=== PATIENT | female | born 1945 | race Caucasian/White ===

== ENCOUNTER → 2017-11-12 | Outpatient (CLI) | payer OTHER, MEDICAID ==
[~2017-11-12] MED LIST: ALBUTEROL INHAL17 GM IH; AMARYL4 MG PO; AUGMENTIN 875-1 EACH PO; AZITHROMYCIN 2250 MG PO; CINNAMON500 MG PO; CONSTULOSE10 GM/15 M PO; COQ-10100 MG PO; CORGARD20 M1; DESYREL50 MG; DOC-Q-LACE; FUROSEMIDE 40 M40 M1 PO; GABAPENTIN100 MG; HUMALOG100 UNIT/1 SQ; HUMALOG100 UNIT/1 SUBQ; IRBESARTAN150 MG; JANUVIA100 MG PO; LANTUS; LANTUS SUBQ; MIRALAX255 GM; OXYCODONE HCL5 M1; OYSTER SHELL C500 MG PO; PEPCID20 MG PO; PREDNISONE 20 M20 MG PO; PROBIOTIC1 EAC1 PO; SPIRONOLACTONE25 M1 PO; SYNTHROID125 MCG PO; SYNTHROID150 MCG PO; TESSALON PERLE100 MG PO; TRAMADOL 50 MG50 MG PO; VENLAFAXINE HC150 M1 PO; VITAMIN D1000 UNI1 PO; VITAMIN D3 COM1 EACH PO; VITAMIN E400 UNIT PO; XIFAXAN550 M1 PO; ZANTAC 150MG T150 MG PO; [UNRECOGNIZED DRUG - REMARK]
--- NOTE | 2017-11-30 09:39 | H ---
[place] [address] HISTORY AND PHYSICAL Name: DEMOND BARKER [facility] [id number] Admission: 11/12/17 Attend Phys: Kali Rogel, Discharge: Date of : 47 Report #: [id number] THIS REPORT FOR: //name// CC: Kvng Rogel DATE OF SERVICE: 11/27/2017 ADMITTING DIAGNOSIS: Right groin hidradenitis. HISTORY OF PRESENT ILLNESS: The patient is a 72-year-old female who presented to [facility] with an eruption on her right inguinal crease area, was seen by Dr. Kali Lopez and was referred for surgical management. PAST MEDICAL HISTORY: Type 2 diabetes, cirrhosis, arthritis, hyperlipidemia, gastroesophageal reflux disease, hypothyroidism, chronic back pain and cervical cancer. PAST SURGICAL HISTORY: She has had an appendectomy, hysterectomy and a colon resection. MEDICATIONS: Include Januvia, glimepiride, famotidine, Lantus insulin, NovoLog insulin, lactulose, Lasix, spironolactone, Effexor, levothyroxine, and multiple vitamins. ALLERGIES: SHE HAS ALLERGIES TO LOVASTATIN. REVIEW OF SYSTEMS: Other than the eruptions was otherwise unremarkable. PHYSICAL EXAMINATION: GENERAL: She is alert, awake, conversant. HEAD, EARS, EYES, NOSE AND THROAT: Unremarkable. No swellings. NECK: Supple, with no lymphadenopathy. Thyroid was not palpable, were normal size. LUNGS: Clear. CARDIAC: Regular rate without murmur. ABDOMEN: Soft. No hepatosplenomegaly. EXTREMITIES: On the right groin, there is a chronic inflamed area of tissue that measures approximately 2.5 cm in length, 8.5 cm in width and 0.1 cm in depth. The rest of the groin was unremarkable. She has no swelling or pitting edema. IMPRESSION: This is acute and chronic hidradenitis of the groin. I have outlined surgical excision with open packing with plans for following up wound care in [facility]. I have outlined the surgical [place] [address] HISTORY AND PHYSICAL Name: DEMOND BARKER [facility]: [facility]#: [id number] Admission: 11/12/17 Attend Phys: Kali Rogel, Discharge: Date of : 47 Report #: [id number] risks and benefits, answered her questions. She understands and wishes to proceed. <ELECTRONICALLY SIGNED> By: Janice Oconnor MD 11/30/17 0939 1110 1136Janice Oconnor MD /nt
== END ==
LOC: M.WC 09:00
DX: L02.214 Cutaneous abscess of groin (principal); E11.65 Type 2 diabetes mellitus with hyperglycemia; K21.9 Gastro-esophageal reflux disease without esophagitis; F33.1 Major depressive disorder, recurrent, moderate; E03.8 Other specified hypothyroidism; Z68.33 Body mass index [BMI] 33.0-33.9, adult; M19.90 Unspecified osteoarthritis, unspecified site; Z85.038 Personal history of other malignant neoplasm of large intestine; E78.5 Hyperlipidemia, unspecified; Z90.710 Acquired absence of both cervix and uterus; Z87.891 Personal history of nicotine dependence

== ENCOUNTER → 2017-11-23 | Outpatient (CLI) | payer OTHER, MEDICAID | LOC: M.WC 02:09 | DX: L02.214 Cutaneous abscess of groin (principal); K21.9 Gastro-esophageal reflux disease without esophagitis; F33.1 Major depressive disorder, recurrent, moderate; E11.9 Type 2 diabetes mellitus without complications; E03.8 Other specified hypothyroidism; L73.2 Hidradenitis suppurativa; Z68.33 Body mass index [BMI] 33.0-33.9, adult; M19.90 Unspecified osteoarthritis, unspecified site; E78.5 Hyperlipidemia, unspecified; Z85.038 Personal history of other malignant neoplasm of large intestine; Z87.891 Personal history of nicotine dependence; Z90.710 Acquired absence of both cervix and uterus ==

== ENCOUNTER 2017-11-30 11:07 | Observation (INO) | payer OTHER, MEDICAID ==
[~2017-11-30] VITALS: Ht 165.1 cm; Wt 99.8 kg
[~2017-11-30 11:07] MED LIST changes: -AUGMENTIN 875-1 EACH PO; -HUMALOG100 UNIT/1 SUBQ; -TESSALON PERLE100 MG PO; -TRAMADOL 50 MG50 MG PO
[2017-11-30 11:37] LABS: HEMATOCRIT 36.4 % (37.0-47.0); HEMOGLOBIN 12.4 gm/dL (12.0-15.0); MCV 88.2 fL (80.0-100.0); RBC 4.13 mil/uL (4.20-5.00); RDW-CV 16.8 % (10.5-14.5); WBC 6.2 thou/uL (4.0-11.0)
[2017-11-30 12:03] LABS: CALCIUM 9.4 mg/dL (8.5-10.1); CREATININE 1.2 mg/dL (0.6-1.3); POTASSIUM 4.2 mmol/L (3.5-5.1)
[2017-11-30 12:07] LABS: ALBUMIN 3.2 g/dL (3.4-5.0); TOTAL BILIRUBIN 1.6 mg/dL (<0.1-1.0); TOTAL PROTEIN 6.3 g/dL (6.4-8.2)
[2017-11-30 16:00] VITALS: BP 132/68
--- NOTE | 2017-11-30 17:59 | EKG ---
[place] [address] ELECTROCARDIOGRAM REPORT Name: DEMOND BARKER Room: [address]#: [id number] Admission: 11/30/17 Attend Phys: Elvin Dan MD Discharge: Date of : 47 Report #: [id number] THIS REPORT FOR: //name// [facility] Test Date: 2017-11-30 Test Time: 11:37:50 Pat Name: DEMOND BARKER Department: Room: Gender: F Security Associate: [facility] : 1945 Requested By: Janice Oconnor Order Number: [id number] Ekta MD: Kike Mas Measurements Intervals [place] Rate: 100 P: 62 [place]: 158 QRS: 23 QRSD: 90 T: 34 QT: 358 QTc: 462 Interpretive Statements Sinus tachycardia Compared to ECG 10/02/2010 19:33:16 Sinus rhythm no longer present Electronically Signed On 11-30-2017 17:59:10 CDT by Kike Mas [email or web address] <ELECTRONICALLY SIGNED> By: Kike Mas MD, [facility] 11/30/17 1759 D: [id number] Kike Mas MD, FACC /EPI
[2017-11-30 18:00] VITALS: BP 109/45
--- NOTE | 2017-11-30 19:07 | NUR ---
PATIENT ARRIVED TO UNIT AT 1530. ALERT AND ORIENTED X4. UP WITH STAND BY ASSIST IN ROOM. IV IS PATENT AND SALINE LOCKED. DENIES NEED FOR PAIN MEDICATION. DENIES NAUSEA. DRESSING HELD IN PLACE WITH MESH PANTIES. TOLERATING DIET. VSS ON ROOM AIR. HOURLY ROUNDS HAVE BEEN MAINTAINED THROUGHOUT SHIFT. CALL LIGHT IS WITHIN REACH. NURSING WILL CONTINUE TO MONITOR.
[2017-11-30 21:00] VITALS: BP 137/60
[2017-12-01] VITALS: BP 109/50
[2017-12-01 04:00] VITALS: BP 110/47
--- NOTE | 2017-12-01 07:28 | NUR ---
PATIENT SLEPT WELL THROUGHOUT THE NIGHT WITHOUT ANY ISSUES. VSS ON RA. PAIN WELL CONTROLLED. MEDICATIONS GIVEN ORDERED AND CHARTED. DRESSING TO GROIN AREA CHANGED. PATIENT UP TO BSC WITH WALKER. IV IN LEFT FOREARM-SL. PATIENT INSTRUCTED TO USE CALL LIGHT WHEN NEEDING ASSISTANCE. HOURLY ROUNDS MADE. WILL CONTINUE WITH PLAN OF CARE AND NURSING TO MONITOR.
[2017-12-01 08:00] VITALS: BP 129/42
[2017-12-01 11:24] VITALS: BP 129/42
--- NOTE | 2017-12-01 12:21 | NUR ---
PT.BEING DISCHARGED TODAY WITH HOME HEALTH. SPOKE WITH HER. SHE SAID HER NEIGHBOR REMINDED HER THAT THE AGENCY THAT WAS SET UP FOR HER WAS [facility]. PT.SAID SHE RECEIVED [facility] THROUGH HER MEDICAID DURING THE WEEK FROM [facility]. SHE HAS A ROLLATOR WALKER IN THE ROOM WITH HER. SHE HAS FRIENDS AT HER APT.THAT CAN ASSIST HER. DEANGELO SPOKE WITH [facility] AND FAXED HER ORDERS AND OP REPORT OT [phone]. DEANGELO MADE APPT WITH AT [facility] FOR THURSDAY 12/07 AT 11:00. PUT ON DISCHARGE INSTRUCTIONS. ARRANGED [facility] TRIP #[id number] WITH [employer] [phone]. 3 HR.HYDRAULIC JACK ADJUSTER WINDOWN TIME IS NOW TO 1520. JUSTO CRUZ INFORMED.
[2017-12-01 14:21] VITALS: BP 129/42
[2017-12-01] MEDS ORDERED: TRAMADOL 50 MG50 MG PO (14:25)
--- NOTE | 2017-12-01 15:09 | S ---
[place] [address] SURGICAL PATH RPT PROCEDURE Name: ANYA OREILLY Room: [address] Leigha#: [id number] Admission: 11/30/17 Date of : 47 Discharge: Report #: [id number] Path Case #: [id number] PATHOLOGY REPORT COLLECTION DATE: 11/30/2017 RECEIVED DATE: 11/30/2017 SUBMITTING PHYS: Dr. Janice Oconnor OTHER PHYS: Dr. Kvng Hoang SPECIMEN(S) RECEIVED: A.Hidradenitis * * * * * * * * * * * * FINAL DIAGNOSIS: Right groin hidradenitis: - Benign skin with features typical of hidradenitis suppurativa, including epithelial/squamous cystic changes, foreign body type granulomatous response, fibrosis and abscess formation. (PAULINO:pit; 12/01/2017) PATHOLOGIST: Dex Little M.D. REPORT ELECTRONICALLY SIGNED BY: Dex Little M.D. DATE/TIME: 12/01/2017 15:08 * * * * * * * * * * * * GROSS PATHOLOGY: The specimen is received in formalin, labeled "Anya Oreilly and right groin hidradenitis", are multiple irregular fragments of hou-purple skin with underlying attached yellow soft tissue (4.0 x 2.6 x 1.0 cm in aggregate) and an irregular fragment of yellow lobulated partially hemorrhagic soft tissue (5.2 x 1.7 x 1.0 cm). Sectioning of the largest fragment reveals a yellow partially-hemorrhagic cut surface. Tuckpointer Cleaner Caulker sections are submitted in A1-A2 (A1 skin and A2 largest fragment) (SWS; 11/30/2017) CLINICAL HISTORY: Right groin hidrandenitis INITIAL CPT CODE(S): A; 62327 Professional services performed by [facility] [place] [address] SURGICAL PATH RPT PROCEDURE Name: MJANYAYumiko BARRIENTOS Room: [address] M.R.#: [id number] Admission: 11/30/17 Date of : 47 Discharge: Report #: [id number] Path Case #: [id number] Technical services performed by [facility] at [address] [place] [address], [facility] [address] [address]. [facility] [place] [address] PHONE: [phone] DIRECTOR: Martin Becker M.D. * * * END OF REPORT * * *
--- NOTE | 2017-12-01 18:27 | NUR ---
PATIENT LEFT UNIT AT 1600. ALERT AND ORIENTED X4. UP STAND BY ASSIST IN ROOM. IV DC'D. PAIN BEING MANAGED WITH PO PAIN MEDICATION. DENIES NAUSEA. DRESSING TO RIGHT GROIN C/D/I AT DC. ALL PERSONAL ITEMS LEFT WITH PATIENT. DISCHARGE INSTRUCTIONS, PRESCRIPTIONS, AND NEW MEDICATION INFORMATION SENT WITH PATIENT. VSS ON ROOM AIR. HOURLY ROUNDS HAVE BEEN MAINTAINED THROUGHOUT SHIFT. LEFT VIA TRANSPORTATION SERVICES.
[2017-12-01 18:33] VITALS: BP 129/42
--- NOTE | 2017-12-14 08:04 | OP ---
[address] [address] OPERATIVE REPORT Name: DEMOND BARKER Room: [address] Vero Ahuja#: [id number] Admission: 11/30/17 Attend Phys: Elvin Dan MD Discharge: 12/01/17 Date of : 47 Report #: [id number] THIS REPORT FOR: //name// CC: Kvng Oconnor DATE OF SERVICE: 11/30/2017 PREOPERATIVE DIAGNOSIS: Chronic right groin hidradenitis. POSTOPERATIVE DIAGNOSIS: Chronic right groin hidradenitis. OPERATIVE PROCEDURE: Wide local excision of infected hidradenitis. Dimensions 3 cm in length, 9 cm in width and 0.4 cm in depth. ANESTHESIA: IV sedation with 0.5% Marcaine and 1% lidocaine infiltrated around the wound site. DESCRIPTION OF PROCEDURE: After the patient was placed under the influence of IV sedation, the right groin was carefully prepped and draped in a sterile fashion. Timeout taken. I began by transecting the right groin area and got into the glandular portion of it and using a pickups #10 scalpel blade and cautery, I excised out the tissue in piecemeal and left an opening of 3 cm in length, 9 cm in width and 4 cm in depth. The wound bed was then injected with 20 mL of Marcaine, epinephrine mixture and then cautery was used to control bleeding points. Once that was established, a rolled piece of Aquacel was placed into the base of the wound bed, then covered with 4 x 4, gauze, ABD pads and mesh panties at the end of the operative procedure. ESTIMATED BLOOD LOSS: 5 mL. Sponge and instrument counts correct. The patient was returned to recovery in stable condition. <ELECTRONICALLY SIGNED> By: Janice Oconnor MD 12/14/17 0804 1319 1417Janice Oconnor MD /nt
== END 2017-12-01 16:00 | disposition home health service (06) ==
LOC: M.SUR 11:07 → M.ORTHSURG 15:07
PROVIDERS: Surgery; ADMIT Internal Medicine
DX: L73.2 Hidradenitis suppurativa (principal); E11.8 Type 2 diabetes mellitus with unspecified complications; Z79.4 Long term (current) use of insulin; G89.29 Other chronic pain; E66.9 Obesity, unspecified; K72.90 Hepatic failure, unspecified without coma; F32.9 Major depressive disorder, single episode, unspecified; F43.10 Post-traumatic stress disorder, unspecified; E03.9 Hypothyroidism, unspecified; K21.9 Gastro-esophageal reflux disease without esophagitis; E78.5 Hyperlipidemia, unspecified; M19.90 Unspecified osteoarthritis, unspecified site; K74.60 Unspecified cirrhosis of liver; Z85.41 Personal history of malignant neoplasm of cervix uteri; Z85.038 Personal history of other malignant neoplasm of large intestine; Z87.891 Personal history of nicotine dependence; Z90.710 Acquired absence of both cervix and uterus; Z98.890 Other specified postprocedural states

== ENCOUNTER → 2017-12-07 | Outpatient (CLI) | payer OTHER, MEDICAID ==
[~2017-12-07] MED LIST changes: +AUGMENTIN 875-1 EACH PO; +HUMALOG100 UNIT/1 SUBQ; +TESSALON PERLE100 MG PO; +TRAMADOL 50 MG50 MG PO
== END ==
LOC: M.WC 01:49
DX: T81.89XD Other complications of procedures, not elsewhere classified, subsequent encounter (principal); L02.214 Cutaneous abscess of groin; K21.9 Gastro-esophageal reflux disease without esophagitis; F33.1 Major depressive disorder, recurrent, moderate; E03.9 Hypothyroidism, unspecified; L73.2 Hidradenitis suppurativa; Z68.33 Body mass index [BMI] 33.0-33.9, adult; M19.90 Unspecified osteoarthritis, unspecified site; Z85.038 Personal history of other malignant neoplasm of large intestine; E78.5 Hyperlipidemia, unspecified; Z85.41 Personal history of malignant neoplasm of cervix uteri; Z87.891 Personal history of nicotine dependence; Z90.710 Acquired absence of both cervix and uterus; Y83.8 Other surgical procedures as the cause of abnormal reaction of the patient, or of later complication, without mention of misadventure at the time of the procedure

== ENCOUNTER → 2017-12-14 | Outpatient (CLI) | payer OTHER, MEDICAID | LOC: M.WC 00:06 | DX: T81.89XD Other complications of procedures, not elsewhere classified, subsequent encounter (principal); L02.214 Cutaneous abscess of groin; K21.9 Gastro-esophageal reflux disease without esophagitis; F33.1 Major depressive disorder, recurrent, moderate; E03.9 Hypothyroidism, unspecified; L73.2 Hidradenitis suppurativa; E11.9 Type 2 diabetes mellitus without complications; M19.90 Unspecified osteoarthritis, unspecified site; E78.5 Hyperlipidemia, unspecified; F32.9 Major depressive disorder, single episode, unspecified; Z68.33 Body mass index [BMI] 33.0-33.9, adult; Z85.038 Personal history of other malignant neoplasm of large intestine; Z85.41 Personal history of malignant neoplasm of cervix uteri; Z87.891 Personal history of nicotine dependence; Z90.710 Acquired absence of both cervix and uterus; Y83.8 Other surgical procedures as the cause of abnormal reaction of the patient, or of later complication, without mention of misadventure at the time of the procedure ==

== ENCOUNTER → 2017-12-21 | Outpatient (CLI) | payer OTHER, MEDICAID | LOC: M.WC 00:04 | DX: T81.89XD Other complications of procedures, not elsewhere classified, subsequent encounter (principal); L02.214 Cutaneous abscess of groin; K21.9 Gastro-esophageal reflux disease without esophagitis; E11.65 Type 2 diabetes mellitus with hyperglycemia; E03.8 Other specified hypothyroidism; E78.5 Hyperlipidemia, unspecified; L73.2 Hidradenitis suppurativa; M19.90 Unspecified osteoarthritis, unspecified site; G89.29 Other chronic pain; F33.1 Major depressive disorder, recurrent, moderate; Z85.038 Personal history of other malignant neoplasm of large intestine; Z87.891 Personal history of nicotine dependence; Z90.710 Acquired absence of both cervix and uterus; Y83.8 Other surgical procedures as the cause of abnormal reaction of the patient, or of later complication, without mention of misadventure at the time of the procedure ==

== ENCOUNTER → 2018-01-04 | Outpatient (CLI) | payer OTHER, MEDICAID | LOC: M.WC 12-28 01:30 | DX: T81.89XD Other complications of procedures, not elsewhere classified, subsequent encounter (principal); L02.214 Cutaneous abscess of groin; K21.9 Gastro-esophageal reflux disease without esophagitis; F33.1 Major depressive disorder, recurrent, moderate; E03.8 Other specified hypothyroidism; L73.2 Hidradenitis suppurativa; M19.90 Unspecified osteoarthritis, unspecified site; E78.5 Hyperlipidemia, unspecified; Z68.33 Body mass index [BMI] 33.0-33.9, adult; Z85.038 Personal history of other malignant neoplasm of large intestine; Z85.41 Personal history of malignant neoplasm of cervix uteri; Z87.891 Personal history of nicotine dependence; Y83.8 Other surgical procedures as the cause of abnormal reaction of the patient, or of later complication, without mention of misadventure at the time of the procedure ==

== ENCOUNTER → 2018-01-25 | Outpatient (CLI) | payer OTHER, MEDICAID | LOC: M.WC 06:30 | DX: T81.89XD Other complications of procedures, not elsewhere classified, subsequent encounter (principal); L02.214 Cutaneous abscess of groin; E03.8 Other specified hypothyroidism; L73.2 Hidradenitis suppurativa; M19.90 Unspecified osteoarthritis, unspecified site; E78.5 Hyperlipidemia, unspecified; E03.9 Hypothyroidism, unspecified; K21.9 Gastro-esophageal reflux disease without esophagitis; G89.29 Other chronic pain; F33.1 Major depressive disorder, recurrent, moderate; Z68.33 Body mass index [BMI] 33.0-33.9, adult; Z85.41 Personal history of malignant neoplasm of cervix uteri; Z87.891 Personal history of nicotine dependence; Z90.710 Acquired absence of both cervix and uterus; Y83.8 Other surgical procedures as the cause of abnormal reaction of the patient, or of later complication, without mention of misadventure at the time of the procedure ==

== ENCOUNTER 2018-02-18 16:08 | Inpatient (IN) | payer OTHER, MEDICAID ==
[~2018-02-18] VITALS: Ht 170.2 cm; Wt 103.9 kg
[~2018-02-18 16:08] MED LIST changes: -AUGMENTIN 875-1 EACH PO; -HUMALOG100 UNIT/1 SUBQ; -TESSALON PERLE100 MG PO
[2018-02-18 16:09] VITALS: BP 122/52
[2018-02-18] MEDS ORDERED: HUMALOG100 UNIT/1 SUBQ (16:17)
[2018-02-18 16:39] LABS: HEMOGLOBIN 12.2 gm/dL (12.0-15.0); MCH 30.6 pg (26.0-34.0); MCHC 34.8 g/dL (28.0-37.0); NUCLEATED RBCS 0 /100WBC; PLATELET COUNT* 108 thou/uL (150-400); RBC 3.98 mil/uL (4.20-5.00); RDW-CV 17.5 % (10.5-14.5); WBC 4.4 thou/uL (4.0-11.0)
[2018-02-18 16:44] LABS: ANION GAP 5 mmol/L (7-16); BUN 20 mg/dL (7-18); CALCIUM 8.6 mg/dL (8.5-10.1); CHLORIDE 101 mmol/L (98-107); CO2 29 mmol/L (21-32); CREATININE 1.1 mg/dL (0.6-1.3); GLUCOSE 246 mg/dL (70-99); SODIUM 135 mmol/L (136-145)
[2018-02-18 16:51] LABS: ALBUMIN 2.9 g/dL (3.4-5.0); ALKALINE PHOSPHATASE 132 U/L (46-116); SGOT 40 U/L (15-37); SGPT 31 U/L (30-65); TOTAL BILIRUBIN 1.1 mg/dL (<0.1-1.0); TOTAL PROTEIN 6.2 g/dL (6.4-8.2); TROPONIN-I LEVEL <0.06 ng/mL (<0.06)
[2018-02-18 17:20] LABS: APTT 24.7 Seconds (25.0-31.3); INR 1.1; PROTIME 10.5 Seconds (9.20-11.50)
[2018-02-18 17:30] LABS: ABSOLUTE EOSINOPHILS 0.2 thou/uL (0.0-0.7); ABSOLUTE LYMPHOCYTES 0.3 thou/uL (0.8-5.3); ABSOLUTE MONOCYTES 0.3 thou/uL (0.0-1.2); ABSOLUTE NEUTROPHILS 3.7 thou/uL (1.6-8.1); ANISOCYTOSIS 1+; PLATELET ESTIMATE ADEQUATE
[2018-02-18 18:44] VITALS: BP 109/49
--- NOTE | 2018-02-18 19:14 | NUR ---
PATIENT ADM TO FLOOR; ARRIVED ON UNIT AT 1855. REPORT RECEIVED FROM ERIC. PATIENT A&OX4, 2L O2 VIA NC, IV RIGHT AC SALINE LOCK. UP WITH ASSISTX1. R/O FEELING INCREASED WEAKNESS PAST WEEK. NO C/O PAIN/N/V. ORIENTED TO ROOM, ALL BELONGINGS WITHIN REACH, CALL LIGHT AT BEDSIDE. NO OTHER CONCERNS AT THIS TIME. APPROPRAITE AND COOPORATIVE WITH CARE. REPORTED TO MACHINE PAN GREASER NURSE, ADM NOT COMPLETED.
[2018-02-18 20:00] VITALS: BP 105/50
[2018-02-19] MEDS ORDERED: XIFAXAN550 M1 PO (00:09)
[2018-02-19 03:56] LABS: ABSOLUTE LYMPHOCYTES 0.2 thou/uL (0.8-5.3); ABSOLUTE MONOCYTES 0.1 thou/uL (0.0-1.2); BASOPHILS 0.2 %; EOSINOPHILS 0.1 %; HEMATOCRIT 31.5 % (37.0-47.0); HEMOGLOBIN 10.9 gm/dL (12.0-15.0); LYMPHOCYTES 6.6 %; MCH 30.8 pg (26.0-34.0); MCHC 34.5 g/dL (28.0-37.0); MCV 89.1 fL (80.0-100.0); MONOCYTES 4.3 %; MPV 8.2 fl. (7.2-11.1); NUCLEATED RBCS 0 /100WBC; PLATELET COUNT* 85 thou/uL (150-400); POLYS 88.8 %; RBC 3.53 mil/uL (4.20-5.00); RDW-CV 17.6 % (10.5-14.5); WBC 3.4 thou/uL (4.0-11.0)
[2018-02-19 04:12] LABS: ALBUMIN 2.7 g/dL (3.4-5.0); CALCIUM 8.7 mg/dL (8.5-10.1); CREATININE 1.2 mg/dL (0.6-1.3); POTASSIUM 4.6 mmol/L (3.5-5.1); TOTAL BILIRUBIN 0.9 mg/dL (<0.1-1.0); TOTAL PROTEIN 5.7 g/dL (6.4-8.2)
--- NOTE | 2018-02-19 05:36 | NUR ---
PATIENT ARRIVED ON FLOOR ABOUT 1900 FROM ER. PATIENT ADMISSION HISTORY AND ASSESSMENT WAS COMPLETED CHARTED. IV REMAINS SALINE LOCKED. PATIENT GETS VERY SHORT OF BREATH WITH ACTIVITY. O2 SAT IS 98% ON ROOM O2 AT 2L IS AT BEDSIDE ON STANDBY FOR COMFORT. PATIENT IS NPO FOR ABDOMINAL ULTRASOUND AND POSSIBLE PARACENTISIS TO TAKE OFF FLUID FROM HER ABDOMEN TODAY. WILL CONTINUE TO MONITOR.
[2018-02-19 10:00] VITALS: BP 109/46
[2018-02-19 10:07] LABS: BF RBC 2054 /mm3; TOTAL CELL COUNT 1161 /mm3
[2018-02-19 10:11] LABS: CLARITY HAZY; COLOR YELLOW; TOTAL VOLUME 2650 ml
[2018-02-19 10:17] LABS: BF LYMPHOCYTES 35 %; BF MONOCYTES 56 %; BF POLYS 9 %; BF TISSUE 4 /100 WBC
[2018-02-19 10:18] LABS: SOURCE ABDOMINAL
--- NOTE | 2018-02-19 10:25 | EKG ---
[place] [address] ELECTROCARDIOGRAM REPORT Name: DEMOND BARKER Room: [address] IN [facility].#: [id number] Admission: 02/18/18 Attend Phys: Flo Cantor MD Discharge: Date of : 47 Report #: [id number] THIS REPORT FOR: //name// [facility] ED Test Date: 2018-02-18 Test Time: 16:15:51 Pat Name: DEMOND BARKER Department: Room: Gender: F Pneumatic Press Hand: Stefan MED STUDENT : 1945 Requested By: Brittany Skaggs Order Number: [id number] MD: Donal Peterson Measurements Intervals [place] Rate: 99 P: 50 SD: 142 QRS: 13 QRSD: 85 T: 34 QT: 348 QTc: 447 Interpretive Statements Sinus rhythm Baseline wander in lead(s) II,III,aVF,V4,V5,V6 Compared to ECG 11/30/2017 11:37:50 Sinus tachycardia no longer present st changes less prominent Electronically Signed On 02-19-2018 10:25:07 CDT by Donal Peterson [email or web address] <ELECTRONICALLY SIGNED> By: Donal Peterson MD, [facility] 02/19/18 1025 1615 1615 Donal Peterson MD, [facility] /EPI
[2018-02-19 11:48] LABS: ALBUMIN 2.8 g/dL (3.4-5.0); CALCIUM 8.7 mg/dL (8.5-10.1); CREATININE 1.3 mg/dL (0.6-1.3); POTASSIUM 4.1 mmol/L (3.5-5.1); TOTAL PROTEIN 5.9 g/dL (6.4-8.2)
--- NOTE | 2018-02-19 12:13 | NUR ---
SW met with pt to complete initial assessment, introduce self, and SW role. Pt alert, oriented, pleasant. Pt lives in a [facility] apt, [facility]. Pt says she still has some friends available to assist who also live in the apts but that there are new people moving in as well. Pt has hx with [facility]. And in home assist through [employer] under Medicaid. Pt has [employer]. Pt uses [employer] transport. Pt says that EMS brought her to the hospital under a call from her doctor's office requesting to assist pt. SW to continue to follow to assist with safe dc planning.
--- NOTE | 2018-02-19 16:13 | NUR ---
PATIENT HAS PARACENTESIS THIS AM, DRESSING TO RIGHT LOWER ABD DRY AND INTACT. ABD US AND DOPPLERS DONE THIS AM. INSULIN GIVEN PER SCALE WHEN REQUIRED. UP WITH ASSISTANCE. PATIENT TRANSFERRED TO ORTHO UNIT AND CARE TRANSFERRED TO JUSTO MENDENHALL.
--- NOTE | 2018-02-19 18:39 | NUR ---
ASSUMED CARE OF PATIENT AT 1700. REPORT RECEIVED FROM CLIFFORD. PATIENT IS RESTING IN BED. PATIENT DENIES ANY PAIN. IV REMOVED DUE TO INFILTRATION, ORDERS RECEIVED TO LEAVE OUT. PATIENT DENIES ANY NEEDS AT THIS TIME. CALL LIGHT WITHIN REACH. WILL CONTINUE TO MONITOR.
[2018-02-20 00:04] VITALS: BP 111/52
[2018-02-20 04:10] LABS: ABSOLUTE BASOPHILS 0.1 thou/uL (0.0-0.2); ABSOLUTE EOSINOPHILS 0.2 thou/uL (0.0-0.7); ABSOLUTE LYMPHOCYTES 0.6 thou/uL (0.8-5.3); ABSOLUTE MONOCYTES 0.7 thou/uL (0.0-1.2); ABSOLUTE NEUTROPHILS 5.5 thou/uL (1.6-8.1); BASOPHILS 0.7 %; EOSINOPHILS 3.5 %; HEMATOCRIT 31.7 % (37.0-47.0); HEMOGLOBIN 10.8 gm/dL (12.0-15.0); LYMPHOCYTES 8.2 %; MCH 30.7 pg (26.0-34.0); MCHC 34.2 g/dL (28.0-37.0); MCV 89.7 fL (80.0-100.0); MONOCYTES 9.5 %; MPV 7.9 fl. (7.2-11.1); NUCLEATED RBCS 0 /100WBC; PLATELET COUNT* 96 thou/uL (150-400); POLYS 78.1 %; RBC 3.53 mil/uL (4.20-5.00); RDW-CV 17.4 % (10.5-14.5); WBC 7.1 thou/uL (4.0-11.0)
[2018-02-20 04:32] LABS: ALBUMIN 2.8 g/dL (3.4-5.0); CALCIUM 8.7 mg/dL (8.5-10.1); CREATININE 0.9 mg/dL (0.6-1.3); POTASSIUM 4.1 mmol/L (3.5-5.1); TOTAL PROTEIN 5.8 g/dL (6.4-8.2)
--- NOTE | 2018-02-20 05:14 | NUR ---
PT SLEPT AT INTERVALS DURING THE NIGHT, PT PLEASANT, UP SBA TO THE BATHROOM, STRESS INCONTINENCE WHEN COUGHING, WORE AND CHANGED OWN BRIEFS, ROOM AIR, BANDAID INTACT TO RIGHT ABDOMEN, CALL LIGHT IN REACH, WILL CONTINUE TO MONITOR
[2018-02-20 07:50] VITALS: BP 110/47
[2018-02-20 12:05] VITALS: BP 100/40
[2018-02-20 16:39] VITALS: BP 103/49
--- NOTE | 2018-02-20 18:19 | NUR ---
PATIENT HAS BEEN A/O X 4 THIS SHIFT. PATIENT HAS DENIED PAIN OR SHORTNESS OF AIR. UP AD REESE IN ROOM. BLOOD SUGARS DOCUMENTED. PATIENT CONTINUES ON LACTULOSE AND DIURETICS FOR CIRRHOSIS. NO IV. UP IN CHAIR FOR PART OF SHIFT. HOURLY ROUNDING COMPLETED. CALL LIGHT WITHIN REACH. WILL CONTINUE WITH PLAN OF CARE.
[2018-02-20 21:45] VITALS: BP 103/67
[2018-02-21] VITALS: BP 100/53
--- NOTE | 2018-02-21 04:57 | NUR ---
ALERT AND ORIENTED X4. HAS PRODUCTIVE COUGH. DENIES PAIN OR NAUSEA. RECEIVES BREATHING TREATMENT. BANDAID RIGHT LOWER QUADRATE DRY AND INTACT. TESSALON PERLS GIVEN FOR COUGH AND HELPFUL. CALL LIGHT WITHIN REACH.
[2018-02-21 07:35] VITALS: BP 113/55
[2018-02-21 16:00] VITALS: BP 118/64
--- NOTE | 2018-02-21 17:25 | NUR ---
PATIENT HAS BEEN A/O X 4 THIS SHIFT. MEDICATED FOR RIGHT SHOULDER PAIN THIS EVENING WITH TYLENOL. NO IV. GIVEN MIRALAX THIS SHIFT, PATIENT ABLE TO HAVE BM THIS AFTERNOON. PATIENT HAD ABD ULTRASOUND THIS AFTERNOON. PATIENT UP IN CHAIR FOR PART OF SHIFT. PATIENT WITH NON PRODUCTIVE COUGH, TESSALON PERLES EFFECTIVE THIS SHIFT. BLOOD SUGARS CHARTED. PATIENT TO HAVE REPEAT LABS IN AM. HOURLY ROUNDING COMPLETED. CALL LIGHT WITHIN REACH. WILL CONTINUE WITH PLAN OF CARE.
[2018-02-21 22:00] VITALS: BP 110/53
[2018-02-22 04:20] LABS: HEMATOCRIT 35.6 % (37.0-47.0); HEMOGLOBIN 11.8 gm/dL (12.0-15.0); MCV 90.9 fL (80.0-100.0); RBC 3.91 mil/uL (4.20-5.00); RDW-CV 17.8 % (10.5-14.5); WBC 5.3 thou/uL (4.0-11.0)
[2018-02-22 04:43] LABS: CREATININE 1.1 mg/dL (0.6-1.3); MAGNESIUM 2.4 mg/dL (1.8-2.4); POTASSIUM 4.2 mmol/L (3.5-5.1); TOTAL BILIRUBIN 1.1 mg/dL (<0.1-1.0); TOTAL PROTEIN 5.8 g/dL (6.4-8.2)
--- NOTE | 2018-02-22 05:16 | NUR ---
UP AD REESE IN ROOM TO BATHROOM. TYLENOL GIVEN X1 FOR GENERALIZED PAIN WITH SOME RELIEF. NO C/O N/V. HAS NONPRODUCTIVE COUGH. O2 SAT REMAINS IN 90'S ON ROOM AIR. BANDAID DRESSING DRY AND INTACT OVER RIGHT LOWER ABDOMEN INCISION SITE. CALL LIGHT WITHIN REACH.
[2018-02-22 08:00] VITALS: BP 89/47
[2018-02-22] MEDS ORDERED: AUGMENTIN 875-1 EACH PO (12:51)
--- NOTE | 2018-02-22 12:53 | NUR ---
P.T. ORDERS RECEIVED. CHART REVIEWED. NSG NOTES, NSG AND PT INDICATE PT HAS BEEN UP IN ROOM AD REESE W/O DIFFICULTY. P.T. SPOKE WITH PT. SHE HAS NO CONCERNS RE MOBILITY. ACUTE P.T. INTERVENTION NOT INDICATED AT THIS TIME.
[2018-02-22 12:59] VITALS: BP 89/47
--- NOTE | 2018-02-22 16:30 | NUR ---
PT.EATING LUNCH THE FIRST TIME CM SPOKE WITH HER. SHE IS BEING DISCHARGED TODAY. SHE TOLD NURSE THAT HER FRIEND CAN PICK HER UP AND TAKE HER HOME. AT 1420 SHE SAID NO FRIEND CAN NO LONGER PICK HER UP . CM CALLED [facility] [phone]. SET UP DISCHARGE TRANSPORTATION. PT.CAN WALK TO VAN. 3 HR WINDOW IS [phone]. TRIP #[id number]. HOMARN SAID [facility] CALLED AND SHE INFORMED THEM THAT PT.DISCHARGEING TODAY. PT.HAS CAREGIVER THROUGH THEM.
--- NOTE | 2018-02-22 17:11 | NUR ---
PATIENT HAS BEEN ALERT AND ORIENTED TODAY VERY PLEASANT. UP AD REESE IN ROOM. NO COMPLAINTS OF ANY KIND TODAY. APPETITE IS GOOD AND IS TOLERATING DIET WELL. VITAL SIGNS STABLE ON ROOM AIR, HYPOTENSIVE THIS MORNING BUT ASYMPTOMATIC. PATIENT IS BEING DISCHARGED TO HOME WITH HOME HEALTH. DISCHARGE INSTRUCTIONS AND PRESCRIPTION GIVEN, QUESTIONS ANSWERED FOR PATIENT. LEFT VIA WHEELCHAIR TO HOME.
[2018-02-22 17:14] VITALS: BP 89/47
[2018-02-23 10:35] LABS: BODY FLUID LDH 111; BODY FLUID PROTEIN 1.5
--- NOTE | 2018-03-02 16:59 | CON ---
[address] [address] CONSULTATION Name: DEMOND BARKER Room: [address] IN M.R.#: [id number] Admission: 02/18/18 Attend Phys: Flo Cantor MD Discharge: 02/22/18 Date of : 47 Report #: [id number] THIS REPORT FOR: //name// CC: Flo Cantor [facility] DATE OF SERVICE: 02/19/2018 ADDENDUM I have personally seen and examined the patient and reviewed labs and imaging. The patient with history of ANGULO and cryptogenic cirrhosis who has a history of esophageal varices dating back to 2014. She has been on spironolactone and Lasix. She had worsening ascites and total of 2600 mL was removed by means of paracentesis. Her renal function is also compromised as her GFR is in mid 40s. We will decrease the dose of diuretics and continue to monitor renal function. The patient also will receive Xifaxan and we will obtain abdominal ultrasound with Doppler to evaluate her portal systemic blood flow. <ELECTRONICALLY SIGNED> By: Sierra Madsen MD 03/02/18 1659 1335 [id number] Madsen MD /nt
--- NOTE | 2018-03-02 16:59 | CON ---
[address] [address] CONSULTATION Name: MJDEMOND FLOYD Room: [address] IN M.R.#: [id number] Admission: 02/18/18 Attend Phys: Flo Cantor MD Discharge: 02/22/18 Date of : 47 Report #: [id number] THIS REPORT FOR: //name// CC: Flo Dorman DICTATED BY: Bernadette Dixon [facility] DATE OF SERVICE: 02/19/2018 Please note at the time of this dictation, the patient was seen and physically examined by myself. REASON FOR CONSULTATION: Shortness of air, ascites. HISTORY OF PRESENT ILLNESS: A 72-year-old female who presented to the Emergency Room with increasing shortness of breath and increasing weight and increasing in her ascites. She was to have an appointment with Dr. Hoang yesterday, but instead canceled and came to the Emergency Room because of the way she was feeling. The patient states over the last several months, her weight has been increasing and fluctuating anywhere from 211 to a high now of almost 227, which is she weighed 226.6 on admission. She states she has been taking her diuretics and she did notice a little bit of weight gain and that her abdomen was getting bigger and pressing up against making her more short of breath plus she was having a significant cough with all of this. The patient was last seen in 12/2016 briefly in the hospital. The patient's last endoscopy studies were with Dr. Botello back in 12/2014. On EGD, she had grade 1 esophageal varices and colonoscopy showed a hyperplastic and tubular adenoma and she is due for both upper and lower scopes at this time. The patient prior to being seen this morning underwent a paracentesis; labs are still pending from that, but she had 2600 mL removed. The patient states she has been taking her lactulose every day because of giving her diarrhea; however, she has noticed that her stools are more pellets now and realizes she needs to take that on a more regular basis. ALLERGIES: STATINS. MEDICATIONS FROM HOME: Synthroid, Pepcid, probiotic, venlafaxine, oyster shell calcium, Januvia, Amaryl, CoQ10, cinnamon bark, vitamin E, vitamin D, Humalog, furosemide, Aldactone, Lantus, and lactulose. PAST MEDICAL HISTORY: History of cirrhosis secondary to nonalcoholic fatty liver disease, noninsulin dependent diabetic, arthritis, history of colon cancer, diverticulosis, hyperlipidemia, GERD, hypothyroidism, urinary retention, incontinence, depression, [place] [address] CONSULTATION Name: DEMOND BARKER Room: [address] IN M.R.#: [id number] Admission: 02/18/18 Attend Phys: Flo Cantor MD Discharge: 02/22/18 Date of : 47 Report #: [id number] PAST SURGICAL HISTORY: Colon resection, appendectomy, cholecystectomy, hysterectomy. FAMILY HISTORY: Noncontributory. SOCIAL HISTORY: Denies any alcohol, tobacco or illegal drug use. REVIEW OF SYSTEMS: Twelve-point review of systems is essentially negative except what is mentioned in the HPI. PHYSICAL EXAMINATION: VITAL SIGNS: Temperature 37, pulse 108, respirations 16, blood pressure 105/50. HEART: Regular rate and rhythm. LUNGS: Diminished, but essentially clear. She does have a significant cough, which is nonproductive. ABDOMEN: Soft, positive bowel sounds in all 4 quadrants with just tenderness over the insertion site from her paracentesis since she just got back from that. Cytology is still pending. LABORATORY DATA: Hemoglobin is 10.9, hematocrit 31.5, white count is 3.4, platelets 85, MCV is 89.1. Sodium 137, potassium 4.6, chloride 103, CO2 of 27, BUN is 25, creatinine 1.2, GFR is 44 and glucose is 407. Total bilirubin 0.9, alkaline phosphatase 115, ALT 27, AST is 31. PT is 10.5 and INR is 1.1. Her current weight is 103.99 kilos. IMPRESSION: 1. Shortness of air. 2. Weight gain. 3. Ascites. 4. Nonalcoholic fatty liver disease. 5. History of grade 1 esophageal varices in 12/2014. Last colonoscopy in 12/2014, both hyperplastic and tubular adenoma, due for repeat. 6. Personal history of colon cancer and cervical cancer. PLAN: 1. Monitor her weight daily. 2. We will switch up her spironolactone to 150 mg daily and Lasix 60 mg daily in a more proportionate ratio to help with her ascites. 3. Needs to continue with the lactulose 20 grams per 30 mL at least 2-3 times a day to produce 2-3 stools a day. 4. Restart her Xifaxan 550 mg daily. 5. The patient will need a repeat EGD and colonoscopy due to her history of esophageal varices and history of tubular adenoma and her personal history of colon cancer. 6. Further recommendations to be made once Dr. Madsen sees the patient later today. [address] [place] [address] CONSULTATION Name: DEMOND BARKER Room: [address] IN ..#: [id number] Admission: 02/18/18 Attend Phys: Flo Cantor MD Discharge: 02/22/18 Date of : 47 Report #: [id number] Thank you for allowing us to participate in this patient's care. Please do not hesitate to call with any questions in regard to this consult. <ELECTRONICALLY SIGNED> By: Sierra Madsen MD 03/02/18 1659 1047 1801Sierra Madsen MD /nt
--- NOTE | 2018-06-18 09:08 | PATH ---
[address] [address] PATHOLOGY RPT PROCEDURE Name: DEMOND BARKER Room: [address] IN [facility]#: [id number] Admission: 02/18/18 Date of : 47 Discharge: 02/22/18 Report #: [id number] Path Case #: [id number] Note [facility] Accession Number: [id number] TESTS RESULT FLAG UNITS REF RANGE LAB Clinician Provided Cytology Information No. of containers..01 Other (Miscellaneous) Source: ASCITES DIAGNOSIS: 02 ASCITES INCONCLUSIVE. REACTIVE MESOTHELIAL CELLS ARE PRESENT. THIS INTERPRETATION INCLUDES EVALUATION OF A CELL BLOCK. COMMENT; THERE ARE FEW ATYPICAL CELLS PRESENT WHICH ARE POSITIVE FOR CALRETININ AND NEGATIVE FOR KATHE-EP4 LIKELY REACTIVE MESOTHELIAL CELLS SUGGEST CLINICAL CORRELATION. V Signed out by: 02 Ariel Kwong MD, Pathologist NPI- [id number] Performed by: 02 Keesha Sales, Logistic Manager ([facility]) Gross description: 01 27ML, YELLOW, CLOUDY /LCS FLAG LEGEND: L-Low Normal,H-High Normal,LL-Alert Low,HH-Alert High <-Panic Low,>-Panic High,A-Abnormal,AA-Critical Abnormal Performed at: [address] [address] Kali Galo MD, [address] [place] [id number] Martin Becker MD, Specimen Comment: A duplicate report has been generated due to demographic updates. Performed at: [address] [id number] MD Kali Galo MD Phone: [phone]
== END 2018-02-22 17:00 | disposition home health service (06) | DRG 433 ==
LOC: M.ERS 16:08 → M.TBA-ER 17:12 → M.3W 17:12 → M.ORTHSURG 02-19 16:32
PROVIDERS: Family Medicine; Nurse Practitioner Adult Health; Physician Assistant; ADMIT Internal Medicine
PROC: 0W9G3ZZ Drainage of Peritoneal Cavity, Percutaneous Approach (ICD-10-PCS; principal; 2018-02-19)
DX: K74.60 Unspecified cirrhosis of liver (principal); R18.8 Other ascites; K72.90 Hepatic failure, unspecified without coma; E11.9 Type 2 diabetes mellitus without complications; M19.90 Unspecified osteoarthritis, unspecified site; E78.5 Hyperlipidemia, unspecified; K21.9 Gastro-esophageal reflux disease without esophagitis; E03.9 Hypothyroidism, unspecified; F32.9 Major depressive disorder, single episode, unspecified; K57.90 Diverticulosis of intestine, part unspecified, without perforation or abscess without bleeding; K76.0 Fatty (change of) liver, not elsewhere classified; F43.10 Post-traumatic stress disorder, unspecified; G89.29 Other chronic pain; M54.9 Dorsalgia, unspecified; J20.9 Acute bronchitis, unspecified; F41.9 Anxiety disorder, unspecified; E11.22 Type 2 diabetes mellitus with diabetic chronic kidney disease; N18.3 Chronic kidney disease, stage 3 (moderate); R06.03 Acute respiratory distress; Z85.41 Personal history of malignant neoplasm of cervix uteri; Z79.899 Other long term (current) drug therapy; Z85.038 Personal history of other malignant neoplasm of large intestine; Z79.4 Long term (current) use of insulin; Z90.49 Acquired absence of other specified parts of digestive tract; Z90.710 Acquired absence of both cervix and uterus; Z88.8 Allergy status to other drugs, medicaments and biological substances; Z87.891 Personal history of nicotine dependence

== ENCOUNTER → 2018-04-05 | Outpatient (CLI) | payer OTHER, MEDICAID ==
[~2018-04-05] VITALS: Ht 167.6 cm; Wt 93.0 kg
[~2018-04-05] MED LIST changes: +AUGMENTIN 875-1 EACH PO; +HUMALOG100 UNIT/1 SUBQ; +TESSALON PERLE100 MG PO
[2018-04-05 10:34] LABS: HEMATOCRIT 38.6 % (37.0-47.0); HEMOGLOBIN 12.9 gm/dL (12.0-15.0); MCH 29.9 pg (26.0-34.0); MCHC 33.5 g/dL (28.0-37.0); MCV 89.3 fL (80.0-100.0); MPV 8.5 fl. (7.2-11.1); RBC 4.33 mil/uL (4.20-5.00); RDW-CV 17.6 % (10.5-14.5)
[2018-04-05 10:41] LABS: CALCIUM 8.7 mg/dL (8.5-10.1); CREATININE 1.2 mg/dL (0.6-1.3); POTASSIUM 4.1 mmol/L (3.5-5.1)
[2018-04-05 10:45] VITALS: BP 117/48
[2018-04-05 10:47] LABS: APTT 25.5 Seconds (25.0-31.3); INR 1.1; PROTIME 11.1 Seconds (9.20-11.50)
== END | disposition home or self-care (01) ==
LOC: M.INT 09:39
PROVIDERS: Radiology Diagnostic Radiology
DX: K70.31 Alcoholic cirrhosis of liver with ascites (principal); Z53.8 Procedure and treatment not carried out for other reasons; Z88.8 Allergy status to other drugs, medicaments and biological substances

== ENCOUNTER → 2018-04-16 | Outpatient (CLI) | payer OTHER, MEDICAID ==
[~2018-04-16] VITALS: Ht 165.1 cm; Wt 91.6 kg
[2018-04-16 11:14] VITALS: BP 137/62
[2018-04-16 11:22] VITALS: BP 137/62
== END | disposition home or self-care (01) ==
LOC: M.INT 10:24
DX: Z48.03 Encounter for change or removal of drains (principal); Z53.8 Procedure and treatment not carried out for other reasons; E11.9 Type 2 diabetes mellitus without complications; M19.90 Unspecified osteoarthritis, unspecified site; E03.9 Hypothyroidism, unspecified; I10 Essential (primary) hypertension; F32.9 Major depressive disorder, single episode, unspecified; N19 Unspecified kidney failure; Z90.49 Acquired absence of other specified parts of digestive tract; Z90.710 Acquired absence of both cervix and uterus; Z85.41 Personal history of malignant neoplasm of cervix uteri; Z98.0 Intestinal bypass and anastomosis status; Z98.890 Other specified postprocedural states; Z79.899 Other long term (current) drug therapy

== ENCOUNTER → 2018-05-04 | Outpatient (CLI) | payer OTHER, MEDICAID ==
[~2018-05-04] VITALS: Ht 154.9 cm; Wt 98.0 kg
[2018-05-04 11:01] VITALS: BP 120/54
[2018-05-04 11:07] LABS: HEMATOCRIT 35.2 % (37.0-47.0); HEMOGLOBIN 11.9 gm/dL (12.0-15.0); MCH 30.6 pg (26.0-34.0); MCHC 33.9 g/dL (28.0-37.0); MCV 90.3 fL (80.0-100.0); MPV 8.2 fl. (7.2-11.1); RBC 3.89 mil/uL (4.20-5.00); RDW-CV 17.3 % (10.5-14.5)
[2018-05-04 11:14] LABS: CALCIUM 8.1 mg/dL (8.5-10.1); POTASSIUM 4.3 mmol/L (3.5-5.1)
[2018-05-04 11:16] LABS: APTT 22.4 Seconds (25.0-31.3); PROTIME 10.7 Seconds (9.20-11.50)
[2018-05-04 11:19] LABS: ALBUMIN 2.8 g/dL (3.4-5.0); TOTAL BILIRUBIN 1.1 mg/dL (<0.1-1.0); TOTAL PROTEIN 6.2 g/dL (6.4-8.2)
[2018-05-04 13:47] VITALS: BP 111/43
[2018-05-04 14:24] VITALS: BP 113/50
== END | disposition home or self-care (01) ==
LOC: M.INT 08:59
PROVIDERS: Radiology Diagnostic Radiology
DX: K70.31 Alcoholic cirrhosis of liver with ascites (principal); K21.9 Gastro-esophageal reflux disease without esophagitis; E11.9 Type 2 diabetes mellitus without complications; M19.90 Unspecified osteoarthritis, unspecified site; E78.5 Hyperlipidemia, unspecified; E03.9 Hypothyroidism, unspecified; I95.9 Hypotension, unspecified; R32 Unspecified urinary incontinence; F32.9 Major depressive disorder, single episode, unspecified; F43.10 Post-traumatic stress disorder, unspecified; G89.29 Other chronic pain; Z79.899 Other long term (current) drug therapy; Z88.8 Allergy status to other drugs, medicaments and biological substances; Z79.84 Long term (current) use of oral hypoglycemic drugs; Z79.4 Long term (current) use of insulin; Z85.038 Personal history of other malignant neoplasm of large intestine; Z98.890 Other specified postprocedural states; Z87.19 Personal history of other diseases of the digestive system; Z90.89 Acquired absence of other organs; Z90.49 Acquired absence of other specified parts of digestive tract; Z90.710 Acquired absence of both cervix and uterus; Z85.41 Personal history of malignant neoplasm of cervix uteri; Z82.49 Family history of ischemic heart disease and other diseases of the circulatory system; Z83.3 Family history of diabetes mellitus; Z80.9 Family history of malignant neoplasm, unspecified

== ENCOUNTER 2018-05-12 17:52 | Inpatient (IN) | payer OTHER, MEDICAID ==
[~2018-05-12] VITALS: Ht 154.9 cm; Wt 104.8 kg
[~2018-05-12 17:52] MED LIST changes: -TESSALON PERLE100 MG PO
[2018-05-12 17:54] VITALS: BP 124/51
[2018-05-12] MEDS ORDERED: TESSALON PERLE100 MG PO (18:08)
[2018-05-12 18:54] LABS: HEMATOCRIT 32.9 % (37.0-47.0); HEMOGLOBIN 11.3 gm/dL (12.0-15.0); MCH 30.9 pg (26.0-34.0); MCHC 34.3 g/dL (28.0-37.0); MCV 90.1 fL (80.0-100.0); MPV 8.2 fl. (7.2-11.1); NUCLEATED RBCS 0 /100WBC; PLATELET COUNT* 103 thou/uL (150-400); RBC 3.65 mil/uL (4.20-5.00); RDW-CV 17.9 % (10.5-14.5); WBC 5.4 thou/uL (4.0-11.0)
[2018-05-12 18:59] LABS: CALCIUM 8.6 mg/dL (8.5-10.1); CREATININE 1.1 mg/dL (0.6-1.3)
[2018-05-12 19:03] LABS: ALBUMIN 2.5 g/dL (3.4-5.0); TOTAL BILIRUBIN 0.8 mg/dL (<0.1-1.0); TOTAL PROTEIN 5.4 g/dL (6.4-8.2)
[2018-05-12 19:08] LABS: INR 1.1; PROTIME 10.8 Seconds (9.20-11.50)
[2018-05-12 20:06] LABS: ABSOLUTE BASOPHILS 0.1 thou/uL (0.0-0.2); ABSOLUTE EOSINOPHILS 0.5 thou/uL (0.0-0.7); ABSOLUTE LYMPHOCYTES 0.3 thou/uL (0.8-5.3); ABSOLUTE MONOCYTES 0.5 thou/uL (0.0-1.2); ABSOLUTE NEUTROPHILS 4.1 thou/uL (1.6-8.1)
[2018-05-12 20:07] LABS: ANISOCYTOSIS 1+; PLATELET ESTIMATE ADEQUATE
[2018-05-12 20:08] LABS: MICROCYTES Occasional
[2018-05-12 20:09] VITALS: BP 124/51
[2018-05-12 21:07] VITALS: BP 114/47
[2018-05-13 04:11] LABS: ABSOLUTE BASOPHILS 0.1 thou/uL (0.0-0.2); ABSOLUTE EOSINOPHILS 0.6 thou/uL (0.0-0.7); ABSOLUTE LYMPHOCYTES 0.5 thou/uL (0.8-5.3); ABSOLUTE MONOCYTES 0.6 thou/uL (0.0-1.2); ABSOLUTE NEUTROPHILS 2.5 thou/uL (1.6-8.1); BASOPHILS 1.5 %; EOSINOPHILS 13.8 %; HEMATOCRIT 31.7 % (37.0-47.0); LYMPHOCYTES 12.2 %; MCH 31.5 pg (26.0-34.0); MCHC 34.7 g/dL (28.0-37.0); MCV 90.6 fL (80.0-100.0); MONOCYTES 14.5 %; MPV 8.4 fl. (7.2-11.1); NUCLEATED RBCS 0 /100WBC; PLATELET COUNT* 92 thou/uL (150-400); RDW-CV 18.1 % (10.5-14.5); WBC 4.4 thou/uL (4.0-11.0)
[2018-05-13 04:31] LABS: CALCIUM 8.6 mg/dL (8.5-10.1); CREATININE 0.9 mg/dL (0.6-1.3)
[2018-05-13 08:00] VITALS: BP 124/46
[2018-05-13 13:50] VITALS: BP 124/46
--- NOTE | 2018-05-13 16:30 | EKG ---
[place] [address] ELECTROCARDIOGRAM REPORT Name: DEMOND BARKER Room: [address] ADM IN .R.#: [id number] Admission: 05/12/18 Attend Phys: Flo Cantor MD Discharge: Date of : 47 Report #: [id number] THIS REPORT FOR: //name// [facility] ED Test Date: 2018-05-12 Test Time: 18:32:55 Pat Name: DEMOND BARKER Department: Room: [facility] Gender: F Recreation Professor: : 1945 Requested By: Sergio Garza Order Number: [id number] MD: Bobo Cassidy Measurements Intervals [place] Rate: 81 P: 38 [place]: 154 QRS: 14 QRSD: 89 T: 63 QT: 371 QTc: 431 Interpretive Statements Sinus rhythm Borderline low voltage, extremity leads Compared to ECG 02/18/2018 16:15:51 No significant changes Electronically Signed On 05-13-2018 16:30:12 CDT by Bobo Cassidy [email or web address] <ELECTRONICALLY SIGNED> By: Bobo Cassidy MD, [facility] 05/13/18 1630 183 31 Bobo Cassidy MD, [facility] /EPI
[2018-05-13 17:43] VITALS: BP 124/46
== END 2018-05-13 17:40 | disposition hospice, home (50) | DRG 920 ==
LOC: M.ERS 17:52 → M.3W 18:34 → M.TBA-ER 18:34 → M.3W 20:06
PROVIDERS: Family Medicine; ADMIT Internal Medicine
DX: T85.698A Other mechanical complication of other specified internal prosthetic devices, implants and grafts, initial encounter (principal); R18.8 Other ascites; E44.0 Moderate protein-calorie malnutrition; K72.90 Hepatic failure, unspecified without coma; K74.60 Unspecified cirrhosis of liver; E11.9 Type 2 diabetes mellitus without complications; M19.90 Unspecified osteoarthritis, unspecified site; K57.90 Diverticulosis of intestine, part unspecified, without perforation or abscess without bleeding; E78.5 Hyperlipidemia, unspecified; G89.29 Other chronic pain; M54.9 Dorsalgia, unspecified; F41.9 Anxiety disorder, unspecified; E03.9 Hypothyroidism, unspecified; K21.9 Gastro-esophageal reflux disease without esophagitis; F32.9 Major depressive disorder, single episode, unspecified; Z90.49 Acquired absence of other specified parts of digestive tract; Z90.710 Acquired absence of both cervix and uterus; Z79.4 Long term (current) use of insulin; Z85.038 Personal history of other malignant neoplasm of large intestine; Z85.41 Personal history of malignant neoplasm of cervix uteri; Z88.8 Allergy status to other drugs, medicaments and biological substances; Z23 Encounter for immunization; Y83.8 Other surgical procedures as the cause of abnormal reaction of the patient, or of later complication, without mention of misadventure at the time of the procedure; Y92.89 Other specified places as the place of occurrence of the external cause; Z79.899 Other long term (current) drug therapy

== ENCOUNTER → 2018-06-08 | Outpatient (CLI) | payer OTHER, MEDICAID ==
[~2018-06-08] MED LIST changes: +TESSALON PERLE100 MG PO
== END ==
LOC: M.CT 12:52
DX: K74.60 Unspecified cirrhosis of liver (principal); K72.90 Hepatic failure, unspecified without coma; R16.1 Splenomegaly, not elsewhere classified; R18.8 Other ascites